=== PATIENT | male | born 1990 | race Caucasian/White ===

== ENCOUNTER 2021-06-02 12:39 | Emergency (ER) | payer SELFPAY ==
[2021-06-02 12:55] VITALS: BP 174/103; PULSE 50
[2021-06-02] MEDS ORDERED: Lidocaine 1% 50 ML MDV INJECT STA (13:08)
[2021-06-02] MEDS ORDERED: Ketorolac 30 MG/ML SDV IM ONE (13:09)
[2021-06-02] MEDS ORDERED: Bupivacaine 0.25% 10 ML SDV INJECT ONE (13:09)
== END 2021-06-02 14:53 | disposition home or self-care (01) ==
LOC: JP.ED 12:39
DX: K04.7 Periapical abscess without sinus (principal); K02.9 Dental caries, unspecified; Z72.0 Tobacco use
CPT/HCPCS: 64400; 96372; 99282-25; 99284; J1885; J2001; J3490